=== PATIENT | male | born 1985 | race Caucasian/White ===

== ENCOUNTER 2018-04-26 16:25 | Emergency (ER) | payer BC ==
[2018-04-26] MEDS ORDERED: Sodium Chloride 0.9% 10 ML Syringe FLUSH PRN (16:54)
[2018-04-26] MEDS ORDERED: Sodium Chloride 0.9% 1,000 ML IV ONE (16:56)
[2018-04-26] MEDS ORDERED: Ketorolac 30 MG/ML SDV IVPUSH ONE (17:22)
[2018-04-26] MEDS ORDERED: Ondansetron 4 MG/2 ML SDV IVPUSH ONE (17:22)
[2018-04-26] MEDS ORDERED: SUMAtriptan 6 MG/0.5 ML SDV SUBCUT ONE (17:22)
--- NOTE | 2018-04-26 17:25 | EDM.PDOC ---
ED HPI GENERAL MEDICAL PROBLEM - General Chief Complaint: Headache Stated Complaint: headache Time Seen by Provider: 04/26/18 16:55 Source of Information: Reports: Patient History Limitations: Reports: No Limitations - History of Present Illness INITIAL COMMENTS - FREE TEXT/NARRATIVE: Patient comes to ER complaining of migraine headache. Headache is bilateral, mostly posterior. It started around noon today when he woke up. Took Diclofenac around 1pm but it did not help much. Has history of intermittent migraine-like headaches for past 10 years but no formal workup. No head CT. History of obesity, smoking, HTN, high cholesterol, GERD. Headaches happen several times a year but usually get better on their own within 6 hours to a day or so if he gets a chance to sleep. No particular headache triggers. Has visual aura/flashing lights at times. Mild nausea, no emesis. Has photophobia, feels like vision in both eyes gets blurry at times when he has these headaches. No focal neuro changes/weakness. No other acute changes/complaints/recent changes. 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 Headache Pain Score (Numeric/FACES): 6 - Related Data Allergies Allergy/AdvReac Type Severity Reaction Status Date / Time banana [Banana] Allergy Anaphylactic Verified 11/25/13 07:08 Shock fiber glass Allergy Itching Uncoded 11/25/13 07:56 Home Meds: Home Meds Atenolol [Tenormin] 100 mg PO DAILY 11/25/13 [History] Hydrochlorothiazide [Microzide] 0 mg PO DAILY 11/25/13 [History] Omeprazole 20 mg PO DAILY 11/25/13 [History] atorvaSTATin [Lipitor] 0 mg PO BEDTIME 11/25/13 [History] Cholecalciferol (Vitamin D3) [Vitamin D3] 2,000 unit PO DAILY #30 tablet [Rx] Magnesium Glycinate [Mag Glycinate] 100 mg PO DAILY #30 tablet 04/26/18 [Rx] Ubidecarenone [Co Q-10] 100 mg PO DAILY #30 capsule 04/26/18 [Rx] Past Medical History Cardiovascular History: Reports: High Cholesterol, Hypertension, Syncope (was associated with laughing) Gastrointestinal History: Reports: GERD Endocrine/Metabolic History: Reports: Obesity/BMI 30+ Social & Family History - Tobacco Use Smoking Status *Q: Current Every Day Smoker Years of Tobacco use: 15 Packs/Tins Daily: 1 Used Tobacco, but Quit: No Second Hand Smoke Exposure: Yes - Caffeine Use Caffeine Use: Reports: Coffee Other Caffeine Use: 2 cups/day - Recreational Drug Use Recreational Drug Use: Yes Drug Use in Last 12 Months: Yes Recreational Drug Type: Reports: Marijuana/Hashish Recreational Drug Use Frequency: Monthly ED ROS GENERAL - Review of Systems Review Of Systems: See Below Constitutional: Reports: Decreased Appetite. Denies: Fever, Chills, Diaphoresis HEENT: Reports: Vision Change (see HPI). Denies: Ear Pain, Eye Discharge, Eye Pain, Rhinitis, Sinus Problem, Throat Pain, Vertigo Respiratory: Reports: No Symptoms Cardiovascular: Reports: No Symptoms. Denies: Dyspnea on Exertion, Lightheadedness, Palpitations, Syncope Endocrine: Reports: No Symptoms GI/Abdominal: Reports: Nausea. Denies: Abdominal Pain, Constipation, Diarrhea, Vomiting : Reports: No Symptoms Musculoskeletal: Reports: No Symptoms Skin: Reports: No Symptoms Neurological: Reports: Headache. Denies: Confusion, Dizziness, Numbness, Paresthesia, Pre-Existing Deficit, Seizure, Syncope, Trouble Speaking, Difficulty Walking, Weakness, Change in Speech, Gait Disturbance Psychiatric: Reports: No Symptoms Hematologic/Lymphatic: Reports: No Symptoms - Physical Exam Exam: See Below Exam Limited By: No Limitations General Appearance: Alert, No Apparent Distress, Obese Eye Exam: Bilateral Eye: EOMI, PERRL Ears: Normal External Exam Nose: No: Nasal Deformity, Nasal Swelling, Nasal Drainage Throat/Mouth: Normal Lips, Normal Oropharynx, Normal Voice, No Airway Compromise Head Exam: Atraumatic, Normocephalic Neck: Normal Inspection, Supple, Non-Tender, Full Range of Motion. No: Lymphadenopathy (L), Lymphadenopathy (R) Respiratory/Chest: No Respiratory Distress, Lungs Clear, Normal Breath Sounds, No Accessory Muscle Use Cardiovascular: Normal Peripheral Pulses, Regular Rate, Rhythm, No Murmur GI/Abdominal: Normal Bowel Sounds, Soft, Non-Tender, No Distention (Male) Exam: Deferred Rectal (Males) Exam: Deferred Neuro Exam (Abbreviated): Alert, Oriented, CN II-XII Intact, Normal Cognition, Normal Gait, No Motor/Sensory Deficits Back Exam: No: CVA Tenderness (L), CVA Tenderness (R) Extremities: Normal Inspection, Non-Tender, Normal Capillary Refill Psychiatric: Normal Affect, Normal Mood Skin Exam: Warm, Dry, Intact, Normal Color Course - Vital Signs Last Recorded V/S: Last Vital Signs Temp 36.6 C 04/26/18 16:29 Pulse 65 04/26/18 18:30 Resp 18 04/26/18 18:30 BP 138/69 04/26/18 18:59 Pulse Ox 98 04/26/18 18:30 - Orders/Labs/Meds Orders: Active Orders 24 hr Category Date Time Status Peripheral IV Care [RC] . DIRECTED Care 04/26/18 16:55 Active Sodium Chloride 0.9% [Saline Flush] Med 04/26/18 16:54 Active 10 ml FLUSH ASDIRECTED PRN Peripheral IV Insertion Adult [OM.PC] Routine Oth 04/26/18 16:54 Ordered Medication Orders Sodium Chloride (Saline Flush) 10 ml FLUSH ASDIRECTED PRN PRN Reason: Keep Vein Open Last Admin: 04/26/18 17:43 Dose: 10 ml Labs: Laboratory Tests 04/26/18 04/26/18 04/26/18 Range/Units 17:00 17:15 17:15 WBC 7.9 (4.0-10.2) K/uL RBC 5.24 (4.33-5.41) M/uL Hgb 16.8 (13.1-16.8) g/dL Hct 47.7 (39.0-49.0) % MCV 91.0 (84.0-98.0) fL MCH 32.1 (28.2-33.3) pg MCHC 35.2 (31.7-36.0) g/dL RDW 13.1 (11.2-14.1) % Plt Count 263 (150-350) K/uL Neut % (Auto) 53.0 (45.0-80.0) % Lymph % (Auto) 34.4 (10.0-50.0) % Roberts % (Auto) 8.4 (2.0-14.0) % Eos % (Auto) 3.3 (0.0-5.0) % Baso % (Auto) 0.9 (0.0-2.0) % Neut # (Auto) 4.18 (1.40-7.00) K/uL Lymph # (Auto) 2.71 (0.50-3.50) K/uL Roberts # (Auto) 0.66 (0.00-1.00) K/uL Eos # (Auto) 0.26 (0.00-0.50) K/uL Baso # (Auto) 0.07 (0.00-0.20) K/uL Sodium 138 (136-145) mmol/L Potassium 4.0 (3.5-5.1) mmol/L Chloride 104 (98-107) mmol/L Carbon Dioxide 24.0 (21.0-32.0) mmol/L BUN 15 (7-18) mg/dL Creatinine 0.67 (0.51-1.17) mg/dL Est Cr Clr Drug Dosing TNP Estimated GFR (MDRD) > 60 mL/min Glucose 115 H (74-106) mg/dL Calcium 9.0 (8.5-10.1) mg/dL Magnesium 1.7 L (1.8-2.4) mg/dL Total Bilirubin 0.3 (0.2-1.0) mg/dL AST 24 (15-37) U/L ALT 40 (12-78) U/L Alkaline Phosphatase 55 (46-116) IU/L Total Protein 7.2 (6.4-8.2) g/dL Albumin 3.7 (3.4-5.0) g/dL Meds: Medications Generic Name Dose Route Start Last Admin Trade Name Freq PRN Reason Stop Dose Admin Sodium Chloride 10 ml 04/26/18 16:54 04/26/18 17:43 Saline Flush FLUSH 10 ml ASDIRECTED PRN Administration Keep Vein Open Discontinued Medications Generic Name Dose Route Start Last Admin Trade Name Freq PRN Reason Stop Dose Admin Sodium Chloride 1,000 mls @ 999 mls/hr 04/26/18 16:56 04/26/18 17:04 Normal Saline IV 04/26/18 17:56 999 mls/hr .BOLUS ONE Administration Ketorolac Tromethamine 30 mg 04/26/18 17:22 04/26/18 17:41 Toradol IVPUSH 04/26/18 17:23 30 mg ONETIME ONE Administration Magnesium Sulfate/Dextrose 1 gm 04/26/18 18:12 04/26/18 18:20 Magnesium 1 Gm In D5w 100 Ml IV 04/26/18 18:13 1 gm ONETIME ONE Administration Metoprolol Tartrate 25 mg 04/26/18 17:28 04/26/18 17:36 Lopressor PO 04/26/18 17:29 25 mg ONETIME ONE Administration Ondansetron HCl 4 mg 04/26/18 17:22 04/26/18 17:39 Zofran IVPUSH 04/26/18 17:23 4 mg ONETIME ONE Administration Sumatriptan Succinate 6 mg 04/26/18 17:22 04/26/18 17:45 Imitrex SUBCUT 04/26/18 17:23 6 mg ONETIME ONE Administration - Re-Assessments/Exams Free Text/Narrative Re-Assessment/Exam: 04/26/18 17:33 Patient declined having baseline head CT peformed as part of headache workup. He is agreeable with having one performed on an outpatient basis through his primary provider. IV NS bolus, Toradol, Zofran, Imitrex ordered. Lopressor also given due to elevated BP. Patient allowed to rest. Free Text/Narrative Re-Assessment/Exam: 04/26/18 18:12 Headache has improved from 6 to a 4. Magnesium noted to be low. IV Mag replacement ordered as low Mag is associated with migraine headaches. Plan will be to d/c patient home after Magnesium has been given. He is to go home and rest/sleep. To follow up tomorrow if headache has not improved. To follow up with primary provider in regards to his intermittent migraines and discuss obtaining baseline head CT/headache workup if indicated. Free Text/Narrative Re-Assessment/Exam: 04/26/18 19:08 Headache improved to "1". Patient feels significantly better. BP also improved over time as patient became more comfortable. Departure - Departure Time of Disposition: 19:02 Disposition: Home, Self-Care 01 Condition: Good Clinical Impression: Migraine - Discharge Information *PRESCRIPTION DRUG MONITORING PROGRAM REVIEWED*: Not Applicable *COPY OF PRESCRIPTION DRUG MONITORING REPORT IN PATIENT DAINA: Not Applicable Prescriptions: Cholecalciferol (Vitamin D3) [Vitamin D3] 2,000 unit PO DAILY #30 tablet Magnesium Glycinate [Mag Glycinate] 100 mg PO DAILY #30 tablet Ubidecarenone [Co Q-10] 100 mg PO DAILY #30 capsule Instructions: Migraine Headache, [id number] Referrals: PCP,Unknown [Ordering Only Provider] - Forms: ED Department Discharge Additional Instructions: Lifestyle changes as discussed are highly recommended. Start taking regular Vit D (ideally with Vit K), Magnesium, and CoQ10 supplements as recommended. Follow up with your primary provider in regards to your headaches. Discuss obtaining baseline head CT study. - My Orders Last 24 Hours: My Active Orders 04/26/18 16:54 Sodium Chloride 0.9% [Saline Flush] 10 ml FLUSH ASDIRECTED PRN Peripheral IV Insertion Adult [OM.PC] Routine 04/26/18 16:55 Peripheral IV Care [RC] . DIRECTED - Assessment/Plan Last 24 Hours: My Active Orders 04/26/18 16:54 Sodium Chloride 0.9% [Saline Flush] 10 ml FLUSH ASDIRECTED PRN Peripheral IV Insertion Adult [OM.PC] Routine 04/26/18 16:55 Peripheral IV Care [RC] . DIRECTED
[2018-04-26] MEDS ORDERED: Metoprolol Tartrate 25 MG Tab PO ONE (17:28)
[2018-04-26 17:36] LABS: CHLORIDE,CL 104 mmol/L (98-107); SODIUM,NA 138 mmol/L (136-145)
== END 2018-04-26 19:15 | disposition home or self-care (01) ==
LOC: LL.ED 16:25
DX: G43.909 Migraine, unspecified, not intractable, without status migrainosus (principal); I10 Essential (primary) hypertension; E66.9 Obesity, unspecified; F17.210 Nicotine dependence, cigarettes, uncomplicated; Z91.018 Allergy to other foods; Z79.899 Other long term (current) drug therapy
CPT/HCPCS: 36415; 80053; 83735; 85025; 96361; 96365; 96372; 96375; 99283; A9270; J1885; J2405; J3030; J3475; J7030; J7050

== ENCOUNTER 2019-01-03 20:25 | Emergency (ER) | payer BC ==
[2019-01-03 21:22] LABS: CHLORIDE,CL 104 mmol/L (98-107); SODIUM,NA 141 mmol/L (136-145)
[2019-01-03] MEDS ORDERED: Sodium Chloride 0.9% 10 ML Syringe FLUSH ONE (21:49)
[2019-01-03] MEDS ORDERED: Iopamidol 612 MG/ML 100 ML Bottle IVPUSH ONE (21:55)
--- NOTE | 2019-01-03 22:32 | EDM.PDOC ---
ED HPI GENERAL MEDICAL PROBLEM - General Chief Complaint: General Stated Complaint: Not feeling well Time Seen by Provider: 01/03/19 20:36 Source of Information: Reports: Patient History Limitations: Reports: No Limitations - History of Present Illness INITIAL COMMENTS - FREE TEXT/NARRATIVE: Patient is a 33-year-old who was brought from [facility] with chief complaint of not feeling well states that he was having short bursts of warm feeling throughout his body last about 40 to 60 seconds; episodes lasting a minute included tachycardia atrial fib. He was referred by his boss for evaluation. At this time labs reviewed ALT and AST elevated I will go ahead and start working him up for adrenal overproduction. Onset: Gradual Duration: Week(s):, Chronic, Getting Worse Location: Reports: Chest Severity: Moderate Improves with: Reports: None Worsens with: Reports: None - Related Data Allergies Allergy/AdvReac Type Severity Reaction Status Date / Time aspartame Allergy Itching Verified 01/05/19 08:18 banana [Banana] Allergy Anaphylactic Verified 01/05/19 08:18 Shock fiber glass Allergy Itching Uncoded 01/05/19 08:18 Home Meds: Home Meds Hydrochlorothiazide [Microzide] 12.5 mg PO DAILY@1200 11/25/13 [History] Omeprazole 20 mg PO DAILY@1200 11/25/13 [History] atorvaSTATin [Lipitor] 10 mg PO BEDTIME 11/25/13 [History] Calcium Carbonate [Calcium] 500 mg PO DAILY 05/11/18 [History] Fluticasone Propionate [Flonase] 1 spray NASBOTH BID PRN 05/11/18 [History] Melatonin 10 mg PO BEDTIME PRN 05/11/18 [History] Multivitamin [Men's Multi-Vitamin] 1 tab PO DAILY 05/11/18 [History] metFORMIN [Glucophage XR] 500 mg PO BIDMEALS #60 tab.er 05/12/18 [Rx] Rivaroxaban [Xarelto] 20 mg PO BEDTIME 05/28/18 [History] Metoprolol Tartrate [Lopressor] 50 mg PO BID #20 tablet 05/31/18 [Rx] Potassium Chloride 10 meq PO DAILY #30 tablet.er 06/30/18 [Rx] dilTIAZem HCl [Diltiazem 24Hr ER (Cd)] 360 mg PO DAILY 06/30/18 [History] Lisdexamfetamine Dimesylate [Vyvanse] 40 mg PO DAILY 01/05/19 [History] Metoprolol Tartrate [Lopressor] 25 mg PO BID 01/05/19 [History] diphenhydrAMINE HCl [Diphenhydramine HCl] 3 tab PO BEDTIME PRN 01/05/19 [History ] Past Medical History HEENT History: Reports: Impaired Vision Cardiovascular History: Reports: Afib, Arrhythmia, High Cholesterol, Hypertension, Syncope Respiratory History: Reports: SOB Gastrointestinal History: Reports: Chronic Diarrhea, GERD, Other (See Below) ( fatty liver) Musculoskeletal History: Reports: Fracture Other Musculoskeletal History: fractured ribs, 3 fingers, pelvis Neurological History: Reports: Concussion, Head Trauma Psychiatric History: Reports: Anxiety, Depression Other Psychiatric History: undiagnosed anxiety, depression Endocrine/Metabolic History: Reports: Diabetes, Type II, Obesity/BMI 30+ - Infectious Disease History Infectious Disease History: Reports: Chicken Pox, Influenza, Mononucleosis - Past Surgical History Head Surgeries/Procedures: Reports: None HEENT Surgical History: Reports: Oral Surgery Cardiovascular Surgical History: Reports: None Respiratory Surgical History: Reports: None GI Surgical History: Reports: None Endocrine Surgical History: Reports: None Neurological Surgical History: Reports: None Musculoskeletal Surgical History: Reports: None Dermatological Surgical History: Reports: None Social & Family History - Family History Family Medical History: Noncontributory Cardiac: Reports: Hypertension Other Cardiac Family History: father Respiratory: Reports: COPD Other Respiratory Family Hisory: paternal grandfather- COPD Neurological: Reports: CVA Other Neurological Family History: paternal grandfather- CVA (fatal) Oncologic: Reports: Breast, Colon, Leukemia, Pancreatic Other Oncologic Family History: Breast/pancreatic- maternal grandmother (fatal) . lukemia- paternal grandmother - Caffeine Use Caffeine Use: Reports: Coffee, Soda Other Caffeine Use: rarely soda, coffe 2 cups a day ED ROS GENERAL - Review of Systems Review Of Systems: See Below Constitutional: Reports: Chills, Fatigue, Night Sweats, Diaphoresis HEENT: Reports: No Symptoms Respiratory: Reports: No Symptoms Cardiovascular: Reports: Blood Pressure Problem, Dyspnea on Exertion, Lightheadedness, Palpitations Endocrine: Reports: High Glucose GI/Abdominal: Reports: Diarrhea : Reports: No Symptoms Musculoskeletal: Reports: Joint Pain, Muscle Stiffness Skin: Reports: Other (Skin flushes) Neurological: Reports: Confusion, Dizziness, Headache, Numbness, Tremors, Trouble Speaking Psychiatric: Reports: Depression Hematologic/Lymphatic: Reports: No Symptoms Immunologic: Reports: No Symptoms ED EXAM, GENERAL - Physical Exam Exam: See Below Exam Limited By: No Limitations General Appearance: Alert, WD/WN, No Apparent Distress, Mild Distress, Obese Ears: Normal External Exam, Normal Canal, Hearing Grossly Normal, Normal TMs Nose: Normal Inspection, Normal Mucosa, No Blood Throat/Mouth: Normal Inspection, Normal Lips, Normal Teeth, Normal Gums, Normal Oropharynx, Normal Voice, No Airway Compromise Head: Atraumatic, Normocephalic Neck: Normal Inspection, Supple, Non-Tender, Full Range of Motion Respiratory/Chest: No Respiratory Distress, Lungs Clear, Normal Breath Sounds, No Accessory Muscle Use, Chest Non-Tender Cardiovascular: Regular Rate, Rhythm GI/Abdominal: Normal Bowel Sounds, Soft, Non-Tender, No Organomegaly, No Distention, No Abnormal Bruit, No Mass (Male) Exam: Deferred Rectal (Males) Exam: Deferred Back Exam: Normal Inspection, Full Range of Motion, NT Extremities: Normal Inspection, Normal Range of Motion, Non-Tender, Normal Capillary Refill, No Pedal Edema Neurological: Alert, Oriented, CN II-XII Intact, Normal Cognition, Normal Gait, Normal Reflexes, No Motor/Sensory Deficits Psychiatric: Normal Affect, Normal Mood Skin Exam: Erythema Lymphatic: No Adenopathy Course - Vital Signs Last Recorded V/S: Last Vital Signs Temp 97.3 F 01/03/19 20:31 Pulse 70 01/03/19 20:31 Resp 14 01/03/19 20:31 BP 160/90 H 01/03/19 20:31 Pulse Ox 99 01/03/19 20:31 - Orders/Labs/Meds Labs: Laboratory Tests 01/03/19 01/03/19 01/03/19 Range/Units 20:50 20:50 20:50 WBC 7.2 (4.0-10.2) K/uL RBC 4.68 (4.33-5.41) M/uL Hgb 15.4 (13.1-16.8) g/dL Hct 43.8 (39.0-49.0) % MCV 93.6 (84.0-98.0) fL MCH 32.9 (28.2-33.3) pg MCHC 35.2 (31.7-36.0) g/dL RDW 12.7 (11.2-14.1) % Plt Count 258 (150-350) K/uL Neut % (Auto) 57.3 (45.0-80.0) % Lymph % (Auto) 33.1 (10.0-50.0) % Emanuel % (Auto) 6.3 (2.0-14.0) % Eos % (Auto) 2.6 (0.0-5.0) % Baso % (Auto) 0.7 (0.0-2.0) % Neut # (Auto) 4.11 (1.40-7.00) K/uL Lymph # (Auto) 2.37 (0.50-3.50) K/uL Emanuel # (Auto) 0.45 (0.00-1.00) K/uL Eos # (Auto) 0.19 (0.00-0.50) K/uL Baso # (Auto) 0.05 (0.00-0.20) K/uL Sodium 141 (136-145) mmol/L Potassium 3.3 L (3.5-5.1) mmol/L Chloride 104 (98-107) mmol/L Carbon Dioxide 23.6 (21.0-32.0) mmol/L BUN 13 (7-18) mg/dL Creatinine 0.68 (0.51-1.17) mg/dL Est Cr Clr Drug Dosing 146.69 mL/min Estimated GFR (MDRD) > 60 mL/min Glucose 149 H (74-106) mg/dL Calcium 9.1 (8.5-10.1) mg/dL Total Bilirubin 0.4 (0.2-1.0) mg/dL AST 44 H (15-37) U/L ALT 88 H (12-78) U/L Alkaline Phosphatase 57 (46-116) IU/L Total Protein 7.1 (6.4-8.2) g/dL Albumin 3.9 (3.4-5.0) g/dL TSH, Ultra Sensitive 1.571 (0.358-3.740) mIU/mL Meds: Medications Discontinued Medications Generic Name Dose Route Start Last Admin Trade Name Freq PRN Reason Stop Dose Admin Iopamidol 100 ml 01/03/19 21:55 Isovue-300 (61%) IVPUSH 01/03/19 21:56 ONETIME ONE Sodium Chloride 10 ml 01/03/19 21:49 Saline Flush FLUSH 01/03/19 21:50 ONETIME ONE Departure - Departure Time of Disposition: 22:44 Disposition: Home, Self-Care 01 Condition: Fair Clinical Impression: Overactive adrenal gland - Discharge Information *PRESCRIPTION DRUG MONITORING PROGRAM REVIEWED*: Not Applicable *COPY OF PRESCRIPTION DRUG MONITORING REPORT IN PATIENT DANIA: Not Applicable Instructions: Adrenocorticotropic Hormone Test, ACTH Stimulation Test, 17- Ketosteroid Test Referrals: PCP,None [Primary Care Provider] - Forms: ED Department Discharge Care Plan Goals: Patient will be sent home he is to return to clinic after ultrasound he should call my office at .
== END 2019-01-03 23:00 | disposition home or self-care (01) ==
LOC: LL.ED 20:25
DX: E27.8 Other specified disorders of adrenal gland (principal); I48.91 Unspecified atrial fibrillation; E78.00 Pure hypercholesterolemia, unspecified; I10 Essential (primary) hypertension; F41.9 Anxiety disorder, unspecified; F32.9 Major depressive disorder, single episode, unspecified; E11.9 Type 2 diabetes mellitus without complications; Z88.8 Allergy status to other drugs, medicaments and biological substances; Z91.018 Allergy to other foods; Z79.899 Other long term (current) drug therapy
CPT/HCPCS: 36415; 71046; 80053; 84443; 85025; 93005; 99283-25

== ENCOUNTER 2020-04-16 19:48 | Emergency (ER) | payer BC ==
[2020-04-16 20:24] LABS: CHLORIDE,CL 100 mmol/L (98-107); SODIUM,NA 136 mmol/L (136-145)
--- NOTE | 2020-04-16 20:34 | EDM.PDOC ---
ED HPI GENERAL MEDICAL PROBLEM - General Chief Complaint: General Stated Complaint: Hypertension Time Seen by Provider: 04/16/20 20:00 Source of Information: Reports: Patient History Limitations: Reports: No Limitations - History of Present Illness INITIAL COMMENTS - FREE TEXT/NARRATIVE: BP elevated today at work Has hx/o difficult to control HTN Is on multiple meds No chest pain No SOB Did take meds today Onset: Gradual Duration: Chronic Location: Reports: Generalized Headache Pain Score (Numeric/FACES): 3 - Related Data Allergies Allergy/AdvReac Type Severity Reaction Status Date / Time aspartame Allergy Itching Verified 04/16/20 19:49 banana [Banana] Allergy Anaphylactic Verified 04/16/20 19:49 Shock cephalexin Allergy Itching Verified 04/16/20 19:49 fiber glass Allergy Itching Uncoded 09/12/19 10:08 Home Meds: Home Meds Omeprazole 20 mg PO DAILY@1200 11/25/13 [History] atorvaSTATin [Lipitor] 10 mg PO BEDTIME 11/25/13 [History] hydroCHLOROthiazide [Microzide] 12.5 mg PO DAILY@1200 11/25/13 [History] Calcium Carbonate [Calcium] 500 mg PO DAILY 05/11/18 [History] Melatonin 10 mg PO BEDTIME PRN 05/11/18 [History] Multivitamin [Men's Multi-Vitamin] 1 tab PO DAILY 05/11/18 [History] metFORMIN [Glucophage XR] 500 mg PO BIDMEALS #60 tab.er 05/12/18 [Rx] Rivaroxaban [Xarelto] 20 mg PO BEDTIME 05/28/18 [History] Potassium Chloride 10 meq PO DAILY #30 tablet.er 06/30/18 [Rx] diphenhydrAMINE HCL [Diphenhydramine HCl] 50 tab PO BEDTIME PRN 01/05/19 [History] Acetaminophen 1,000 mg PO Q4H PRN 06/22/19 [History] Cetirizine [ZyrTEC] 10 mg PO DAILY PRN 06/22/19 [History] Metoprolol Tartrate [Lopressor] 75 mg PO BID 09/12/19 [History] dilTIAZem HCL [Diltiazem 24Hr ER] 420 mg PO DAILY 09/12/19 [History] Past Medical History HEENT History: Reports: Impaired Vision Cardiovascular History: Reports: Afib, Arrhythmia, High Cholesterol, Hypertension, Syncope Respiratory History: Reports: SOB Gastrointestinal History: Reports: Chronic Diarrhea, GERD, Other (See Below) Musculoskeletal History: Reports: Fracture Other Musculoskeletal History: fractured ribs, 3 fingers, pelvis Neurological History: Reports: Concussion, Head Trauma Psychiatric History: Reports: Anxiety, Depression Other Psychiatric History: undiagnosed anxiety, depression Endocrine/Metabolic History: Reports: Diabetes, Type II, Obesity/BMI 30+ Dermatologic History: Reports: None - Infectious Disease History Infectious Disease History: Reports: Chicken Pox, Influenza, Mononucleosis - Past Surgical History Head Surgeries/Procedures: Reports: None HEENT Surgical History: Reports: Oral Surgery Cardiovascular Surgical History: Reports: None Respiratory Surgical History: Reports: None GI Surgical History: Reports: None Endocrine Surgical History: Reports: None Neurological Surgical History: Reports: None Musculoskeletal Surgical History: Reports: None Dermatological Surgical History: Reports: None Social & Family History - Family History Family Medical History: Noncontributory Cardiac: Reports: Hypertension Other Cardiac Family History: father Respiratory: Reports: COPD Other Respiratory Family Hisory: paternal grandfather- COPD Neurological: Reports: CVA Other Neurological Family History: paternal grandfather- CVA (fatal) Oncologic: Reports: Breast, Colon, Leukemia, Pancreatic Other Oncologic Family History: Breast/pancreatic- maternal grandmother (fatal). lukemia- paternal grandmother - Tobacco Use Smoking Status *Q: Current Every Day Smoker Years of Tobacco use: 20 Packs/Tins Daily: 0.5 - Caffeine Use Caffeine Use: Reports: None Other Caffeine Use: occasionally - Recreational Drug Use Recreational Drug Use: No ED ROS GENERAL - Review of Systems Review Of Systems: See Below Respiratory: Reports: No Symptoms Cardiovascular: Reports: No Symptoms GI/Abdominal: Reports: No Symptoms ED EXAM, GENERAL - Physical Exam Exam: See Below Exam Limited By: No Limitations General Appearance: Alert, WD/WN, No Apparent Distress Throat/Mouth: Normal Oropharynx Neck: Supple Respiratory/Chest: Lungs Clear Cardiovascular: Regular Rate, Rhythm, No Edema GI/Abdominal: Soft, Non-Tender Course - Vital Signs Last Recorded V/S: Last Vital Signs Temp 97.7 F 04/16/20 20:06 Pulse 78 04/16/20 20:06 Resp 14 04/16/20 20:06 BP 146/93 H 04/16/20 20:06 Pulse Ox 99 04/16/20 20:06 - Orders/Labs/Meds Orders: Active Orders 24 hr Category Date Time Status EKG Documentation Completion [RC] ASDIRECTED Care 04/16/20 19:58 Active Labs: Laboratory Tests 04/16/20 04/16/20 Range/Units 20:07 20:07 WBC 7.9 (4.0-10.2) K/uL RBC 5.22 (4.33-5.41) M/uL Hgb 17.8 H D (13.1-16.8) g/dL Hct 49.8 H (39.0-49.0) % MCV 95.4 (84.0-98.0) fL MCH 34.1 H (28.2-33.3) pg MCHC 35.7 (31.7-36.0) g/dL RDW 12.1 (11.2-14.1) % Plt Count 214 (150-350) K/uL Neut % (Auto) 65.7 (45.0-80.0) % Lymph % (Auto) 24.1 (10.0-50.0) % [place] % (Auto) 7.4 (2.0-14.0) % Eos % (Auto) 2.2 (0.0-5.0) % Baso % (Auto) 0.6 (0.0-2.0) % Neut # (Auto) 5.19 (1.40-7.00) K/uL Lymph # (Auto) 1.90 (0.50-3.50) K/uL [place] # (Auto) 0.58 (0.00-1.00) K/uL Eos # (Auto) 0.17 (0.00-0.50) K/uL Baso # (Auto) 0.05 (0.00-0.20) K/uL Sodium 136 (136-145) mmol/L Potassium 3.6 (3.5-5.1) mmol/L Chloride 100 (98-107) mmol/L Carbon Dioxide 22.4 (21.0-32.0) mmol/L BUN 16 (7-18) mg/dL Creatinine 0.71 (0.51-1.17) mg/dL Est Cr Clr Drug Dosing 137.82 mL/min Estimated GFR (MDRD) > 60 mL/min Glucose 130 H (74-106) mg/dL Calcium 9.1 (8.5-10.1) mg/dL - Re-Assessments/Exams Free Text/Narrative Re-Assessment/Exam: 04/16/20 20:32 See lab EKG without acute changes BP improved now 159/68 Departure - Departure Time of Disposition: 20:35 Disposition: Home, Self-Care 01 Clinical Impression: Hypertension Qualifiers: Hypertension type: essential hypertension Qualified Code(s): I10 - Essential (primary) hypertension - Discharge Information *PRESCRIPTION DRUG MONITORING PROGRAM REVIEWED*: Not Applicable *COPY OF PRESCRIPTION DRUG MONITORING REPORT IN PATIENT DANIA: Not Applicable Additional Instructions: Follow up in clinic Sepsis Event Note (ED) - Evaluation Sepsis Screening Result: No Definite Risk - Focused Exam Vital Signs: Vital Signs Temp Pulse Resp BP Pulse Ox 04/16/20 20:06 97.7 F 78 14 146/93 H 99 - My Orders Last 24 Hours: My Active Orders 04/16/20 19:58 EKG Documentation Completion [RC] ASDIRECTED - Assessment/Plan Last 24 Hours: My Active Orders 04/16/20 19:58 EKG Documentation Completion [RC] ASDIRECTED
== END 2020-04-16 20:45 | disposition home or self-care (01) ==
LOC: LL.ED 19:48
DX: I10 Essential (primary) hypertension (principal); E78.00 Pure hypercholesterolemia, unspecified; I48.91 Unspecified atrial fibrillation; K21.9 Gastro-esophageal reflux disease without esophagitis; E11.9 Type 2 diabetes mellitus without complications; E66.9 Obesity, unspecified; F41.9 Anxiety disorder, unspecified; F32.9 Major depressive disorder, single episode, unspecified; F17.210 Nicotine dependence, cigarettes, uncomplicated; Z68.45 Body mass index [BMI] 70 or greater, adult; Z88.1 Allergy status to other antibiotic agents; Z91.09 Other allergy status, other than to drugs and biological substances; Z91.018 Allergy to other foods; Z79.899 Other long term (current) drug therapy
CPT/HCPCS: 36415; 80048; 85025; 93005; 93010; 99283; 99283-25